=== PATIENT | male | born 1995 | race Caucasian/White ===

== ENCOUNTER 2017-03-23 19:11 | Emergency (ER) | payer BC ==
[~2017-03-23] VITALS: Ht 177.8 cm; Wt 89.8 kg
[2017-03-23 19:14] VITALS: Ht 177.8 cm; Wt 89.8 kg
[2017-03-23] MEDS ORDERED: [UNRECOGNIZED DRUG - CODE] PO (20:04)
[2017-03-23] MEDS ORDERED: MENT5.8L PO (20:04)
--- NOTE | 2017-03-23 20:11 | DIAGNOSTIC IMAGING REPORT ---
CHEST ONE VIEW PORTABLE HISTORY: cough COMPARISON: None. FINDINGS: The lungs are clear. Cardiac silhouette is normal in size. No pleural effusions. No pneumothorax. Small surgical clips surrounding the upper trachea suggestive of prior thyroidectomy. IMPRESSION: No acute process. Electronically signed by: Nathaniel Ricketts M.D. 03/23/2017 8:10 PM Dictated Date/Time: 03/23/2017 8:07 PM
[2017-03-23 20:21] LABS: BASO % 0.1 %; BASO ABS # 0.01 K/uL (0-0.2); EOS % 1.5 %; EOS ABS # 0.12 K/uL (0-0.5); HEMATOCRIT 40.4 % (42-52); HEMOGLOBIN 14.6 g/dL (14.0-18.0); IG# 0.02 K/uL (0.00-0.02); LYMPH % 24.7 %; LYMPH ABS # 1.97 K/uL (1.2-3.4); MEAN CELL VOLUME 80.2 fL (80-100); MEAN CORPUSCULAR HGB CONC 36.1 g/dl (32-36); MEAN PLATELET VOLUME 10.2 fL (7.4-10.4); MONO % 6.5 %; MONO ABS # 0.52 K/uL (0.11-0.59); NEUT % 66.9 %; NEUT ABS # 5.32 K/uL (1.4-6.5); PLATELET COUNT 223 K/uL (130-400); RED CELL DISTRIBUTION WIDTH CV 12.4 % (11.5-14.5); WHITE BLOOD COUNT 7.96 K/uL (4.8-10.8)
[2017-03-23 20:29] LABS: INFLUENZA B ANTIGEN Neg for Influ B (NEG)
[2017-03-23 20:52] LABS: CALCIUM 9.4 mg/dl (8.5-10.1); CREATININE 0.8 mg/dl (0.60-1.40)
[2017-03-23] MEDS ORDERED: KETOROLAC TROMETHAMINE 30 MG/ML VIAL IV STA (20:54)
[2017-03-23 23:06] VITALS: BP 134/81; PULSE 86; TEMP 36.8; O2SAT 98
--- NOTE | 2017-03-24 00:21 | EMERGENCY ROOM VISIT NOTE ---
History Report prepared by Bill: Javier Wolf Under the Supervision of: Dr. Jose G Santiago D.O. First contact with patient: 19:21 Chief Complaint: THROAT PAIN/INJURY Stated Complaint: SORE THROAT, PAINFUL EAR, HEAVY CHEST, HEADACHE History of Present Illness The patient is a 21 year old male who presents to the Emergency Room with complaints of worsening throat pain for the past week which is worsened with swallowing. The patient additionally states that he is having chest heaviness that is worsened while laying down, and it feels similar to his normal heart burn. He also reports that he is having a headache, right ear pain, cough, fever of 102 though gotten better, and yesterday he vomited when he woke up, and he did not drink alcohol the night before. Patient denies diabetes, hypertension, hyperlipidemia, CAD, history of sudden at a young age, and smoking. Patient denies swelling of calves, recent trips, history of immobilization or recent surgery, prior history of DVT, hemoptysis, history of malignancy, or control/estrogen use. He states that he has been using a cough spray and cough drops. Pt denies change in vision, shortness of breath, abdominal pain, nausea, diarrhea, pain with urination, and melena. Source of History: patient Onset: a week ago Position: throat Timing: worsening Modifying Factors (Worsening): other (swallowing) Associated Symptoms: + fevers, + cough, + chest pain, + vomiting, No abdominal pain Review of Systems See HPI for pertinent positives & negatives. A total of 10 systems reviewed and were otherwise negative. Past Medical & Surgical Medical Problems: (1) Kidney stone Surgical Problems: (1) H/O parathyroidectomy (2) History of appendectomy Family History Hypertension Kidney disease Kidney stones Social History Smoking Status: Never Smoker Marital Status: single Occupation Status: employed Current/Historical Medications Scheduled PRN Dyclonine-Glycerin (Cepacol Sore Throat [place]), 1 DOSE PO DIRECTED PRN for SORE THROAT Menthol (Mouth-Throat) (Cough Drops), 1 DROP PO DIRECTED PRN for SORE THROAT Allergies Coded Allergies: No Known Allergies (Unverified , 03/23/17) Physical Exam Vital Signs Date Time Temp Pulse Resp B/P (MAP) Pulse Ox O2 Delivery O2 Flow Rate FiO2 03/23/17 23:06 36.8 86 20 134/81 98 03/23/17 22:16 76 20 131/74 96 Room Air 03/23/17 20:50 76 20 149/94 98 Room Air 03/23/17 19:31 98 Room Air 03/23/17 19:14 36.8 104 18 134/84 96 Room Air Physical Exam GENERAL: Sitting up in bed talking in full sentences. No acute distress, non- toxic. EYE EXAM: normal conjunctiva. PERRL and EOM's grossly intact. EARS: TMs are clear bilaterally. OROPHARYNX: There is erythema in the posterior oropharynx. No exudate, lips, buccal mucosa, and tongue normal and mucous membranes are moist NECK: Cervical anterior lymphadenopathy. Supple, no nuchal rigidity, non-tender LUNGS: Clear to auscultation. Normal chest wall mechanics HEART: no murmurs, S1 normal and S2 normal ABDOMEN: abdomen soft, non-tender, normo-active bowel sounds, no masses, no rebound or guarding. BACK: Back is symmetrical on inspection and there is no deformity, no midline tenderness, no CVA tenderness. SKIN: no rashes and no bruising UPPER EXTREMITIES: upper extremities are grossly normal. LOWER EXTREMITIES: No pitting edema. NEURO EXAM: Normal sensorium, cranial nerves II-XII grossly intact, normal speech, no gross weakness of arms, no gross weakness of legs. Medical Decision & Procedures ER Provider Diagnostic Interpretation: Radiology results as stated below per my review and the radiologist's interpretation: CHEST ONE VIEW PORTABLE HISTORY: cough COMPARISON: None. FINDINGS: The lungs are clear. Cardiac silhouette is normal in size. No pleural effusions. No pneumothorax. Small surgical clips surrounding the upper trachea suggestive of prior thyroidectomy. IMPRESSION: No acute process. Electronically signed by: Nathaniel Ricketts M.D. 03/23/2017 8:10 PM Dictated Date/Time: 03/23/2017 8:07 PM Laboratory Results 03/23/17 19:50 Red Blood Count 5.04, Mean Corpuscular Volume 80.2, Mean Corpuscular Hemoglobin 29.0, Mean Corpuscular Hemoglobin Concent 36.1, Mean Platelet Volume 10.2, Neutrophils (%) (Auto) 66.9, Lymphocytes (%) (Auto) 24.7, Monocytes (%) (Auto) 6.5, Eosinophils (%) (Auto) 1.5, Basophils (%) (Auto) 0.1, Neutrophils # (Auto) 5.32, Lymphocytes # (Auto) 1.97, Monocytes # (Auto) 0.52, Eosinophils # (Auto) 0.12, Basophils # (Auto) 0.01 03/23/17 19:50 Test 03/23/17 19:45 03/23/17 19:50 Influenza Type A Antigen Neg for Influ A (NEG) Influenza Type B Antigen Neg for Influ B (NEG) White Blood Count 7.96 K/uL (4.8-10.8) Red Blood Count 5.04 M/uL (4.7-6.1) Hemoglobin 14.6 g/dL (14.0-18.0) Hematocrit 40.4 % (42-52) Mean Corpuscular Volume 80.2 fL (80-100) Mean Corpuscular Hemoglobin 29.0 pg (25-34) Mean Corpuscular Hemoglobin Concent 36.1 g/dl (32-36) Platelet Count 223 K/uL (130-400) Mean Platelet Volume 10.2 fL (7.4-10.4) Neutrophils (%) (Auto) 66.9 % Lymphocytes (%) (Auto) 24.7 % Monocytes (%) (Auto) 6.5 % Eosinophils (%) (Auto) 1.5 % Basophils (%) (Auto) 0.1 % Neutrophils # (Auto) 5.32 K/uL (1.4-6.5) Lymphocytes # (Auto) 1.97 K/uL (1.2-3.4) Monocytes # (Auto) 0.52 K/uL (0.11-0.59) Eosinophils # (Auto) 0.12 K/uL (0-0.5) Basophils # (Auto) 0.01 K/uL (0-0.2) RDW Standard Deviation 36.0 fL (36.4-46.3) RDW Coefficient of Variation 12.4 % (11.5-14.5) Immature Granulocyte % (Auto) 0.3 % Immature Granulocyte # (Auto) 0.02 K/uL (0.00-0.02) Anion Gap 7.0 mmol/L (3-11) Est Creatinine Clear Calc Drug Dose 163.3 ml/min Estimated GFR () 147.0 Estimated GFR (Non- 126.8 BUN/Creatinine Ratio 12.7 (10-20) Calcium Level 9.4 mg/dl (8.5-10.1) Laboratory results per my review. Medications Administered Medications (Trade) Dose Ordered Sig/Stephanie Route Start Time Stop Time Status Last Admin Dose Admin Ketorolac Tromethamine (Toradol Inj) 30 mg NOW STAT IV 03/23/17 20:54 03/23/17 20:55 DC 03/23/17 21:09 30 MG ECG Indication: chest pain Rate (beats per minute): 79 Rhythm: sinus rhythm Findings: no ectopy, other (Normal axis) Change: Patient's EKG interpreted by me. ED Course ED COURSE: Vital signs were reviewed and showed tachycardia and situational hypertension The patients medical record was reviewed The above diagnostic studies were performed and reviewed. ED treatments and interventions as stated above. 1920: The patient was evaluated in room C9. A complete history and physical examination was performed. 2049: I reevaluated the patient, and he was still having some pain 2053: Toradol 30mg IV 2257: Upon reevaluation, the patient is doing well.I discussed my findings with the patient and he understands and agrees with the treatment plan. Based on the patients age, coexisting illnesses, exam and lab findings the decision to treat as an outpatient was made. The patient remained stable while under my care. The patient appeared well at the time of discharge. Medical Decision Differential diagnosis: Etiologies such as viral syndrome, otitis, pharyngitis, pneumonia, influenza, meningitis, urinary tract infection, sepsis, bacteremia, as well as others were entertained. Patient is a 19-year-old male who presents to ER for upper respiratory symptoms associated with cough, sore throat and ear pain. He does admit to chest pain which has been intermittent over the past several weeks but is only present when laying down. He describes as a burning pain. His feels exactly like his previous reflux. CBC and BMP were unremarkable. Had a completely benign abdominal exam. Denies any abdominal pain. Influenza A and B were negative. Chest x-ray unremarkable. EKG benign. Based on symptoms and do favor he likely has a viral URI. Throat was erythematous but with a negative strep he was discharged follow-up with PCP as an outpatient. Discussed with Pt concerning signs and symptoms to watch out for. Pt was instructed to follow up with their PCP and discussed with the patient their option to return to the ED at anytime for persistent or worsening symptoms. The appropriate anticipatory guidance and out-patient management, including indications for return to the emergency department, were explained at length to the patient and understood. Medication Reconcilliation Current Medication List: was personally reviewed by me Blood Pressure Screening Patient's blood pressure: Elevated blood pressure Blood pressure disposition: Elevated BP felt to be situational Impression Primary Impression: Acute pharyngitis Additional Impression: URI (upper respiratory infection) Scribe Attestation The scribe's documentation has been prepared under my direction and personally reviewed by me in its entirety. I confirm that the note above accurately reflects all work, treatment, procedures, and medical decision making performed by me. Departure Information Dispostion Home / Self-Care Referrals No Doctor, Assigned (PCP) Forms HOME CARE DOCUMENTATION FORM, IMPORTANT VISIT INFORMATION, WORK / SCHOOL INSTRUCTIONS Patient Instructions ED Pharyngitis Viral, [facility] Additional Instructions Please follow up with your primary care doctor or if you are a student, [facility] with in the next 24 hours. Any worsening of your symptoms, please return to the ED immediately. This includes any fevers greater than 100.4, worsening pain, chest pain, shortness breath, persistent nausea, vomiting, unable to eat or drink, or any other concerning signs or symptoms from your standpoint. Please take Motrin or Tylenol as needed for pain. Problem Qualifiers Primary Impression: Acute pharyngitis Pharyngitis/tonsillitis etiology: unspecified etiology Qualified Codes: J02.9 - Acute pharyngitis, unspecified Additional Impression: URI (upper respiratory infection) URI type: unspecified URI Qualified Codes: J06.9 - Acute upper respiratory infection, unspecified
== END 2017-03-23 23:06 | disposition home or self-care (01) ==
LOC: C.EDB 19:13 → C.EDC 23:06
DX: J02.9 Acute pharyngitis, unspecified (principal); R07.89 Other chest pain; R51 Headache; H92.01 Otalgia, right ear; R11.10 Vomiting, unspecified; K21.9 Gastro-esophageal reflux disease without esophagitis; Z82.49 Family history of ischemic heart disease and other diseases of the circulatory system; Z84.1 Family history of disorders of kidney and ureter

== ENCOUNTER 2017-04-21 13:32 | Emergency (ER) | payer BC ==
[~2017-04-21] VITALS: Ht 177.8 cm; Wt 88.2 kg
[~2017-04-21 13:32] MED LIST: MENT5.8L PO; [UNRECOGNIZED DRUG - CODE] PO
[2017-04-21 13:36] VITALS: TEMP 36.8; Ht 177.8 cm; Wt 88.2 kg
[2017-04-21] MEDS ORDERED: SODIUM CHLORIDE 0.9% 500ML 500 ML IV STA (13:54)
[2017-04-21] MEDS ORDERED: KETOROLAC TROMETHAMINE 30 MG/ML VIAL IV STA (13:54)
[2017-04-21] MEDS ORDERED: DiphenhydrAMINE HCL 50 MG/ML VIAL IV STA (13:54)
[2017-04-21] MEDS ORDERED: PROCHLORPERAZINE 5 MG/ML 2 ML VIAL IV STA (13:54)
--- NOTE | 2017-04-21 14:00 | EMERGENCY ROOM VISIT NOTE ---
History First contact with patient: 13:39 Chief Complaint: HEADACHE Stated Complaint: FLASH OF LIGHTS, ARM, DIZZINESS History of Present Illness The patient is a 21 year old male who presents to the Emergency Room with complaints of neurologic symptoms that started at 2 AM this morning. The patient reports waking up from sleep and seeing flashing white lights. He also felt slightly dizzy. The patient sat and then stood up by the side of the bed. He reports a spinning sensation. He also had a mild headache. He denies any nausea. The patient laid back down and went back to sleep from 3 AM to 11. When he awoke at 11:00, he felt "spaced out." The patient denies any recent illnesses. No fever or chills. No sinus congestion. No sore throat. He denies any neck pain or stiffness. He has not taken anything for his symptoms. The patient does have a history of headaches. He has never been diagnosed with migraines. He is concerned because his brother had a stroke at the age of 22. Patient denies any alcohol or drug use. Review of Systems 10 system review performed and negative unless noted in HPI or below Past Medical/Surgical History Medical Problems: (1) Kidney stone Surgical Problems: (1) H/O parathyroidectomy (2) History of appendectomy Family History Hypertension Kidney disease Kidney stones Social History Smoking Status: Never Smoker Marital Status: single Occupation Status: employed Current/Historical Medications No Active Prescriptions or Reported Meds Physical Exam Vital Signs Date Time Temp Pulse Resp B/P (MAP) Pulse Ox O2 Delivery O2 Flow Rate FiO2 04/21/17 16:23 85 16 101/52 98 Room Air 04/21/17 15:22 86 14 92/53 97 Room Air 04/21/17 14:35 88 16 137/83 98 Room Air 04/21/17 14:18 79 04/21/17 13:36 36.8 84 18 140/90 99 Room Air Physical Exam VITALS: Vitals are noted on the nurse's note and reviewed by myself. Vital signs stable. GENERAL: 21-year-old male, in no acute distress, nondiaphoretic, well-developed well-nourished. SKIN: The skin was without rashes, erythema, edema, or bruising. HEAD: Normocephalic atraumatic. EARS: External auditory canals clear, tympanic membranes pearly abreu without erythema or effusion bilaterally. EYES: Pupils equal round and reactive to light and accommodation. Conjunctivae without injection, sclerae without icterus. Extraocular movements intact. MOUTH: Mucous membranes moist. Tonsils are not enlarged. Pharynx without erythema or exudate. Uvula midline. Airway patent. Tongue does not deviate. NECK: Supple without nuchal rigidity. No lymphadenopathy. Cervical spine is nontender. No JVD. HEART: Regular rate and rhythm without murmurs gallops or rubs. LUNGS: Clear to auscultation bilaterally without wheezes, rales or rhonchi. No accessory muscle use. ABDOMEN: Positive bowel sounds x 4.Soft, MUSCULOSKELETAL: No muscle atrophy, erythema, or edema noted. . Strength 5/5 throughout. NEURO: Patient was alert and oriented to person place and time. Cerebellar function intact. Cranial nerves grossly intact. Negative Romberg. Normal heel to toe walking. Normal sensation to touch. No focal neurological deficits. Medical Decision & Procedures ER Provider Diagnostic Interpretation: CT head without contrast IMPRESSION: Normal noncontrast head CT. Electronically signed by: Alcon Aranda M.D. 04/21/2017 2:31 PM Dictated Date/Time: 04/21/2017 2:30 PM The status of this report is Signed. Draft = Not yet reviewed or approved by Radiologist. Signed = Reviewed and approved by Radiologist. Laboratory Results 04/21/17 14:05 Red Blood Count 5.43, Mean Corpuscular Volume 79.7, Mean Corpuscular Hemoglobin 28.7, Mean Corpuscular Hemoglobin Concent 36.0, Mean Platelet Volume 10.0, Neutrophils (%) (Auto) 70.9, Lymphocytes (%) (Auto) 23.7, Monocytes (%) (Auto) 4.1, Eosinophils (%) (Auto) 0.9, Basophils (%) (Auto) 0.2, Neutrophils # (Auto) 3.79, Lymphocytes # (Auto) 1.27, Monocytes # (Auto) 0.22, Eosinophils # (Auto) 0.05, Basophils # (Auto) 0.01 04/21/17 14:05 Test 04/21/17 14:05 White Blood Count 5.35 K/uL (4.8-10.8) Red Blood Count 5.43 M/uL (4.7-6.1) Hemoglobin 15.6 g/dL (14.0-18.0) Hematocrit 43.3 % (42-52) Mean Corpuscular Volume 79.7 fL (80-100) Mean Corpuscular Hemoglobin 28.7 pg (25-34) Mean Corpuscular Hemoglobin Concent 36.0 g/dl (32-36) Platelet Count 242 K/uL (130-400) Mean Platelet Volume 10.0 fL (7.4-10.4) Neutrophils (%) (Auto) 70.9 % Lymphocytes (%) (Auto) 23.7 % Monocytes (%) (Auto) 4.1 % Eosinophils (%) (Auto) 0.9 % Basophils (%) (Auto) 0.2 % Neutrophils # (Auto) 3.79 K/uL (1.4-6.5) Lymphocytes # (Auto) 1.27 K/uL (1.2-3.4) Monocytes # (Auto) 0.22 K/uL (0.11-0.59) Eosinophils # (Auto) 0.05 K/uL (0-0.5) Basophils # (Auto) 0.01 K/uL (0-0.2) RDW Standard Deviation 36.4 fL (36.4-46.3) RDW Coefficient of Variation 12.6 % (11.5-14.5) Immature Granulocyte % (Auto) 0.2 % Immature Granulocyte # (Auto) 0.01 K/uL (0.00-0.02) Anion Gap 6.0 mmol/L (3-11) Est Creatinine Clear Calc Drug Dose 140.9 ml/min Estimated GFR () 136.4 Estimated GFR (Non- 117.6 BUN/Creatinine Ratio 11.2 (10-20) Calcium Level 9.6 mg/dl (8.5-10.1) Total Bilirubin 0.5 mg/dl (0.2-1) Aspartate Amino Transf (AST/SGOT) 18 U/L (15-37) Alanine Aminotransferase (ALT/SGPT) 41 U/L (12-78) Alkaline Phosphatase 101 U/L (45-117) Total Protein 7.8 gm/dl (6.4-8.2) Albumin 4.8 gm/dl (3.4-5.0) Globulin 3.0 gm/dl (2.5-4.0) Albumin/Globulin Ratio 1.6 (0.9-2) Lyme Disease IgG Antibody NEG (NEG) Medications Administered Medications (Trade) Dose Ordered Sig/Stephanie Route Start Time Stop Time Status Last Admin Dose Admin Ketorolac Tromethamine (Toradol Inj) 30 mg NOW STAT IV 04/21/17 13:54 04/21/17 13:57 DC 04/21/17 14:19 30 MG Diphenhydramine HCl (Benadryl Inj) 25 mg NOW STAT IV 04/21/17 13:54 04/21/17 13:57 DC 04/21/17 14:19 25 MG Prochlorperazine Edisylate (Compazine Inj) 10 mg NOW STAT IV 04/21/17 13:54 04/21/17 13:57 DC 04/21/17 14:17 10 MG Sodium Chloride 500 ml @ 999 mls/hr Q31M STAT IV 04/21/17 13:54 04/21/17 14:24 DC 04/21/17 14:16 999 MLS/HR ED Course Patient was seen and examined Vital signs including blood pressure were reviewed medications list was verified with patient Labs were obtained, and a saline lock was established The patient was medicated with Benadryl 25 mg, Toradol 30 mg And Compazine 10 mg IV. He was hydrated with normal saline. Upon reevaluation, the patient was feeling much better. His headache had subsided. He denies any other neurologic symptoms. We discussed his workup thoroughly. He voiced understanding. He had no further questions, and was comfortable being discharged home. I reviewed discharge instructions the patient. They voiced understanding and had no further questions. Medical Decision Differential diagnosis: Atypical migraine, anxiety, dehydration, drug use, CVA, other intracranial abnormality, infectious etiology this patient is a 21-year-old male presents to the emergency department with neurologic symptoms starting at 2 AM this morning and lasting to approximately 3 AM. On exam, the patient was neurologically intact. He had no nuchal rigidity.A CT of the head was performed. No intracranial abnormalities were noted. There is no leukocytosis. His lyme screen was equivocal, which will be sent for further testing. The patient had excellent symptomatic relief in the emergency department with a migraine cocktail. I believe he is stable to be discharged home. He will follow-up with his primary care physician. He will be notified of his Lyme Western blot is positive. He agrees to rest today and drink plenty of fluids. He also agreed to return to the emergency department with any new, worsening or concerning symptoms This chart was completed in part utilizing [employer] Speech Voice Recognition software. Attempts were made to minimize the grammatical errors, random word insertions, pronoun errors and incomplete sentences. Any formal questions or concerns about the content, text or information contained within the body of this dictation should be directly addressed to the provider for clarification. Medication Reconcilliation Current Medication List: was personally reviewed by me Blood Pressure Screening Patient's blood pressure: Elevated blood pressure Blood pressure disposition: Did not require urgent referral Impression Primary Impression: Migraine Departure Information Dispostion Home / Self-Care Condition GOOD Prescriptions No Active Prescriptions or Reported Meds Referrals No Doctor, Assigned (PCP) Patient Instructions [facility] Additional Instructions You have been evaluated in the emergency department today for neurologic symptoms. This is quite possibly a migraine. Blood work will be sent for further testing for Lyme disease. If it is positive , he will be notified by phone. Please drink plenty of fluids. Take ibuprofen 600 mg every 8 hours as needed for pain Please follow-up with your primary care physician within the next 24-48 hours for a recheck Please do not hesitate to return to the emergency department with a new, worsening or concerning symptoms; especially, fever, weakness, slurred speech, severe headache or persistent vomiting
[2017-04-21 14:30] LABS: BASO % 0.2 %; BASO ABS # 0.01 K/uL (0-0.2); EOS % 0.9 %; EOS ABS # 0.05 K/uL (0-0.5); HEMATOCRIT 43.3 % (42-52); HEMOGLOBIN 15.6 g/dL (14.0-18.0); IG# 0.01 K/uL (0.00-0.02); LYMPH % 23.7 %; LYMPH ABS # 1.27 K/uL (1.2-3.4); MEAN CELL VOLUME 79.7 fL (80-100); MEAN CORPUSCULAR HEMOGLOBIN 28.7 pg (25-34); MONO % 4.1 %; MONO ABS # 0.22 K/uL (0.11-0.59); NEUT % 70.9 %; NEUT ABS # 3.79 K/uL (1.4-6.5); PLATELET COUNT 242 K/uL (130-400); RED CELL DISTRIBUTION WIDTH CV 12.6 % (11.5-14.5); RED CELL DISTRIBUTION WIDTH SD 36.4 fL (36.4-46.3); WHITE BLOOD COUNT 5.35 K/uL (4.8-10.8)
--- NOTE | 2017-04-21 14:33 | DIAGNOSTIC IMAGING REPORT ---
CT HEAD WITHOUT CONTRAST (CT) CLINICAL HISTORY: Headache, dizziness, resolved left arm weakness. COMPARISON STUDY: No previous studies for comparison. TECHNIQUE: Axial CT of the brain is performed from the vertex to the skull base. IV contrast was not administered for this examination. A dose lowering technique was utilized adhering to the principles of ALARA. CT DOSE: 537.48 mGy.cm FINDINGS: No intra or extra-axial mass lesions are visualized. There is no CT evidence of acute cortical infarction. There is no evidence of midline shift. There is no acute hemorrhage. No calvarial fractures are visualized. There is no evidence of pathologic ventricular dilatation. There is no evidence of acute sinusitis IMPRESSION: Normal noncontrast head CT. Electronically signed by: Alcon Aranda M.D. 04/21/2017 2:31 PM Dictated Date/Time: 04/21/2017 2:30 PM
[2017-04-21 14:50] LABS: ALBUMIN 4.8 gm/dl (3.4-5.0); CALCIUM 9.6 mg/dl (8.5-10.1); CREATININE 0.92 mg/dl (0.60-1.40); TOTAL PROTEIN 7.8 gm/dl (6.4-8.2)
[2017-04-21 16:23] VITALS: BP 101/52; PULSE 85; O2SAT 98
== END 2017-04-21 16:24 | disposition home or self-care (01) ==
LOC: C.EDB 13:34 → C.EDC 16:24
DX: G43.909 Migraine, unspecified, not intractable, without status migrainosus (principal); Z82.3 Family history of stroke; Z87.442 Personal history of urinary calculi; E89.2 Postprocedural hypoparathyroidism; Z82.49 Family history of ischemic heart disease and other diseases of the circulatory system; Z84.1 Family history of disorders of kidney and ureter